=== PATIENT | male | born 1965 | race American Indian/Alaskan Native ===

== ENCOUNTER 2018-08-14 15:39 | Observation (INO) | payer MEDICARE, MEDICAID ==
[2018-08-14 15:39] VITALS: BMI 22.6
[2018-08-14] MEDS ORDERED: MethylPREDNISolone 40 mg Vial ONE (15:47)
[2018-08-14] MEDS ORDERED: DiphenhydrAMINE 50 mg/ml Inj ONE (15:47)
[2018-08-14] MEDS ORDERED: EPINEPHrine 1 mg/ml (1:1000) Inj ONE (15:48)
--- NOTE | 2018-08-14 15:58 | C.PDOC ---
History Of Present Illness 53 y/o male brought in by ambulance for evaluation of new-onset lower lip, tongue, and neck swelling onset 1 hour prior to arrival. Patient states he was recently prescribed Lisinopril, never took it before, and now started having sy mptoms. He is also complaining of generalized pruritus. Denies PMHx of asthma. + Hx of smoking. Patient states that his voice sounds different at present. He reports hx of similar reaction to psychiatric medications. PER OLD RECORD, SEEN @ [facility] 2.22 FOR SAME. PT ADVISED @ THAT TIME TO STOP [facility]IL, [facility] Time Seen by Provider: 08/14/18 15:45 Chief Complaint (Nursing): Allergic Reaction History Per: Patient History/Exam Limitations: no limitations Onset/Duration Of Symptoms: Mins Current Symptoms Are (Timing): Still Present Possible Cause: Medication Associated Symptoms: Swelling Past Medical History Reviewed: Historical Data, Nursing Documentation, Vital Signs Vital Signs: Last Vital Signs Temp 98.2 F 08/14/18 15:44 Pulse 90 08/14/18 15:44 Resp 22 08/14/18 15:44 BP 127/83 08/14/18 15:44 Pulse Ox 99 08/14/18 15:44 - Medical History PMH: Diabetes, HTN, Schizophrenia Denies: Depression - [facility] Procedures INJECT/INFUSE NEC (01/15/14) Family History: States: Unknown Family Hx - Social History Hx Tobacco Use: Yes (former) Hx Alcohol Use: No Hx Substance Use: No - Immunization History Hx Tetanus Toxoid Vaccination: No Hx Influenza Vaccination: No Hx Pneumococcal Vaccination: No Review Of Systems Except As Marked, All Systems Reviewed And Found Negative. Constitutional: Negative for: Fever, Chills Eyes: Negative for: Vision Change ENT: Positive for: Mouth Swelling (to lips and tongue) Cardiovascular: Negative for: Chest Pain Respiratory: Positive for: Shortness of Breath. Negative for: Cough, Wheezing Gastrointestinal: Negative for: Nausea, Vomiting Skin: Positive for: Other (generalized itching). Negative for: Rash Neurological: Negative for: Weakness, Numbness, Dizziness Physical Exam - Physical Exam Appears: Non-toxic, No Acute Distress, Other (Speaking in full sentences) Skin: Warm, Dry, Other (No hives or edema) Head: Atraumatic, Normacephalic Eye(s): bilateral: Normal Inspection, PERRL, EOMI Tongue: Swelling (Distal tongue angioedema) Lips: Swelling (Mild lower lip angioedema) Throat: No Erythema, No Drooling, Other (No stridor) Neck: Other (no gross swelling or asymmetry) Chest: Symmetrical Cardiovascular: Rhythm Regular, No Murmur Respiratory: No Rales, No Rhonchi, No Wheezing, Other (Lungs clear bilaterally, NARD) Extremity: Bilateral: Atraumatic, Normal ROM (x4) Pulses: Left Radial: Normal, Right Radial: Normal Neurological/Psych: Oriented x3, Normal Speech, Normal Cognition, Normal Cranial Nerves Gait: Steady ED Course And Treatment - Laboratory Results Result Diagrams: 08/14/18 16:15 08/14/18 16:15 ECG: Interpreted By Me ECG Rhythm: Sinus Rhythm Rate From EC O2 Sat by Pulse Oximetry: 99 (RA) Pulse Ox Interpretation: Normal - Radiology CXR: Interpreted by Me CXR Interpretation: Yes: No Acute Disease Progress - Re-Evaluation Re-evaluation Note: 08/14/18 16:32 NARD VSS. PS TOOK LISINOPRIL AGAIN "BC I WAS WORRIED ABOUT MY PRESSURE". STATES WAS AWARE OF PREV INSTRUCTION TO AVOID. 08/14/18 17:35 PERSIST MILD ANGIOEDEMA TIP TONGUE D/W DR Thony PIZANO [employer] AGREES FOR ADMISSION. REQUESTS ICU EVAL D/W DR Geni PIZANO, ADVISES CT NECK. ADMIT PT TELE IF NO AIRWAY COMPROMISE ON CT 08/14/18 18:52 NARD APPEARS COMFORTABLE. - Data Reviewed Data Reviewed: Lab, Diagnostic imaging, EKG, Old records - Critical Care Citical Care: Excluding Proc Time Critical Care Time: 90 minutes Medical Decision Making Medical Decision Making: Impression: Angioedema s/p taking new Lisinopril Plan: - EKG - Labs - Chest x-ray - 100 mg IV Solu-Cortef - 20 mg IV Pepcid - 50 mg IV Benadryl - 1 mg SC epinephrine Hcl - reassess Disposition Counseled Patient/Family Regarding: Studies Performed, Diagnosis - Disposition Disposition: HOSPITALIZED Disposition Time: 18:57 Condition: SERIOUS Forms: [facility] (Yakut) - Clinical Impression Clinical Impression: Angioedema - Scribe Statement The provider has reviewed the documentation as recorded by the Db Wu Provider Attestation: All medical record entries made by the Scribe were at my direction and personally dictated by me. I have reviewed the chart and agree that the record accurately reflects my personal performance of the history, physical exam, medical decision making, and the department course for this patient. I have also personally directed, reviewed, and agree with the discharge instructions and disposition. PROCEDURES - EJ/Peripheral Line Consent Obtained: verbal consent Time Out Performed: Yes Skin Cleansed in Sterile Fashion: Yes Size: 20 IV Secured and Dressing Applied: No Patient Tolerated Procedure: Well Additional comments: B/L EJ ATTEMPT WO SUCCESS. SEVERE SCLEROTIC VEINS.
[2018-08-14] MEDS ORDERED: EPINEPHrine 1 mg/ml (1:1000) Inj SC STA (16:04)
[2018-08-14] MEDS ORDERED: DiphenhydrAMINE 50 mg/ml Inj IVP STA (16:07)
[2018-08-14 16:24] LABS: BASO # 0.1 K/uL (0.0-0.2); BASO % 0.5 % (0.0-2.0); EOS # 0.1 K/uL (0.0-0.7); EOS % 0.4 % (0.0-4.0); LYMPH # 1.4 K/uL (1.0-4.3); LYMPH % 5.6 % (20.0-40.0); MEAN CELL VOLUME 73.5 fL (80.0-94.0); MEAN CORPUSCULAR HEMOGLOBIN 22.5 pg (27.0-31.0); MEAN CORPUSCULAR HGB CONC 30.7 g/dL (33.0-37.0); MEAN PLATELET VOLUME 10.2 fL (7.2-11.7); MONO # 1.4 K/uL (0.0-0.8); MONO % 5.7 % (0.0-10.0); NEUT # 21.7 K/uL (1.8-7.0); NEUT % 87.8 % (50.0-75.0); NRBC % 0.1 % (0.0-2.0); PLATELET COUNT 173 K/uL (130-400); RBC 5.31 Mil/uL (4.40-5.90); RED CELL DISTRIBUTION WIDTH 18.9 % (11.5-14.5); WHITE BLOOD COUNT 24.6 K/uL (4.8-10.8)
[2018-08-14 16:38] LABS: BLOOD UREA NITROGEN 21 mg/dL (9-20); GFR NON-AFRICAN AMERICAN > 60
[2018-08-14 16:49] LABS: ANISOCYTOSIS MODERATE; BANDS 1 % (0-2); LYMPHOCYTE 4 % (20-40); MONOCYTE 7 % (0-10); NEUTROPHIL 88 % (50-75); PLATELET ESTIMATE NORMAL (NORMAL); TOTAL CELLS COUNTED 100
[2018-08-14 16:50] LABS: LARGE PLATELETS PRESENT; TOXIC GRANULATION PRESENT
[2018-08-14 16:51] LABS: GIANT PLATELETS PRESENT
[2018-08-14 16:52] LABS: HYPOCHROMIC MODERATE; POLYCHROMIC SLIGHT
[2018-08-14 16:53] LABS: OVALOCYTES SLIGHT; POIKILOCYTOSIS SLIGHT; SCHISTOCYTES SLIGHT
[2018-08-14] MEDS ORDERED: Dexamethasone 4 mg/1 ml IVP ONE ×2 (20:33→21:45)
--- NOTE | 2018-08-14 20:42 | CP.PCM.CON ---
History of Present Illness - History of Present Illness History of Present Illness: 53 y.o. male with a history of schizophrenia who obtaind his medications from [place] presents to [facility] after taking lisinopril. Patient notes he was told not to take ACEI/lisinopril; however he took lisinopril and developed tongue swelling. Patient able to speak crisply without any hoarseness. Denies any chest pain, denies any abdominal pain. PAtient was recently given IV solumedrol. Patient denies any stridor. Deneis any dizziness, denies any difficulty breathing Pmx: psych d/o : schizophrenia allergies: benztropine, heldol, lisinopril, PCN SH: denies smoking, (+)ocassional etoh Review of Systems - Constitutional Constitutional: As Per HPI Past Patient History - Tetanus Immunizations Tetanus Immunization: Unknown - Past Social History Smoking Status: Former Smoker - CARDIAC Hx Hypertension: Yes - ENDOCRINE/METABOLIC Hx Diabetes Mellitus Type 2: Yes - HEMATOLOGICAL/ONCOLOGICAL Hx Blood Disorders: Yes Hx Cancer: Yes (prostate) - PSYCHIATRIC Hx Depression: No Hx Schizophrenia: Yes Hx Substance Use: No - ANESTHESIA Hx Anesthesia: Yes Hx Anesthesia Reactions: No Meds Allergies/Adverse Reactions: Allergies Allergy/AdvReac Type Severity Reaction Status Date / Time benztropine [From Cogentin] Allergy ANAPHYLAXIS Verified 08/13/18 18:48 haloperidol [From Haldol] Allergy ANAPHYLAXIS Verified 08/13/18 18:48 lisinopril Allergy ANGIOEDEMA Verified 08/13/18 18:56 peanut Allergy ANAPHYLAXIS Verified 08/13/18 18:48 Penicillins Allergy ANAPHYLAXIS Verified 08/13/18 18:48 - Medications Medications: Current Medications Diphenhydramine HCl (Benadryl) 25 mg PO Q6 [facility] Diphenhydramine HCl (Benadryl) 25 mg PO ONCE ONE Stop: 08/15/18 20:01 Hydrocortisone Sodium Succinate (Solu-Cortef) 60 mg IV Q8 [facility] Physical Exam - Head Exam Head Exam: ATRAUMATIC, NORMAL INSPECTION, NORMOCEPHALIC - Eye Exam Eye Exam: EOMI Pupil Exam: NORMAL ACCOMODATION - ENT Exam ENT Exam: Mucous Membranes Moist - Neck Exam Neck exam: Positive for: Normal Inspection. Negative for: Lymphadenopathy, Meningismus, Tenderness, Thyromegaly - Respiratory Exam Respiratory Exam: Clear to Auscultation Bilateral, NORMAL BREATHING PATTERN. absent: Prolonged Expiratory Phase, Rales, Rhonchi, Wheezes, Respiratory Distress, Stridor - Cardiovascular Exam Cardiovascular Exam: REGULAR RHYTHM, +S1, +S2 - GI/Abdominal Exam GI & Abdominal Exam: Normal Bowel Sounds, Soft. absent: Distended, Guarding, Hernia, Rebound, Rigid, Tenderness - Extremities Exam Extremities exam: Positive for: normal inspection - Neurological Exam Neurological exam: Alert, CN II-XII Intact, Oriented x3 - Psychiatric Exam Psychiatric exam: Normal Affect - Skin Skin Exam: Normal Color, Warm Results - Vital Signs Recent Vital Signs: Last Vital Signs Temp 98.5 F 08/14/18 20:34 Pulse 20 L 08/14/18 20:34 Resp 98 H 08/14/18 20:34 BP 114/62 08/14/18 20:34 Pulse Ox 99 08/14/18 19:16 - Labs Result Diagrams: 08/14/18 16:15 08/14/18 16:15 Labs: Laboratory Results - last 24 hr 08/14/18 08/14/18 16:15 16:15 WBC 24.6 H RBC 5.31 Hgb 12.0 Hct 39.0 MCV 73.5 L MCH 22.5 L MCHC 30.7 L RDW 18.9 H Plt Count 173 MPV 10.2 Neut % (Auto) 87.8 H Lymph % (Auto) 5.6 L [place] % (Auto) 5.7 Eos % (Auto) 0.4 Baso % (Auto) 0.5 Neut # (Auto) 21.7 H Lymph # (Auto) 1.4 [place] # (Auto) 1.4 H Eos # (Auto) 0.1 Baso # (Auto) 0.1 Neutrophils % (Manual) 88 H Band Neutrophils % 1 Lymphocytes % (Manual) 4 L Monocytes % (Manual) 7 Toxic Granulation Present Platelet Estimate Normal Large Platelets Present Giant Platelets Present Polychromasia Slight Hypochromasia (manual) Moderate Poikilocytosis (manual Slight Anisocytosis (manual) Moderate Ovalocytes Slight Schistocytes Slight Sodium 132 Potassium 4.0 Chloride 98 Carbon Dioxide 27 Anion Gap 11 BUN 21 H Creatinine 0.9 Est GFR ( Amer) > 60 Est GFR (Non-Af Amer) > 60 Random Glucose 168 H Calcium 9.0 Assessment & Plan - Assessment and Plan (Free Text) Assessment: ICU consulted for ?tongue swelling: Patient has no clinical signs of stridor, speaking crisply and articulating well, saturating > 92 on room air -tongue swelling: obtain ENT eval, CT head/neck reveals no posterior pharynx swelling, clinically no redness or pharyngeal swelling -h/o HTN: avoid norvasc -h/o psych: please obtain patient's medication list from [facility] -continue dvt/pud ppx -Patient remains hemodynamically stable -please keep HOB >30 -Please call ICU if patient's clinical status worsens. - Date & Time Date: 08/14/18 Time: 19:00
--- NOTE | 2018-08-15 08:58 | CT ---
Date of service: 08/14/2018 PROCEDURE: CT NECK WITHOUT CONTRAST HISTORY: ANGIOEDEMA COMPARISON: None available. TECHNIQUE: CT of the neck without intravenous contrast. Coronal and sagittal reformats generated. Radiation dose: Total exam DLP = 620.28 mGy-cm. This CT exam was performed using one or more of the following dose reduction techniques: Automated exposure control, adjustment of the mA and/or kV according to patient size, and/or use of iterative reconstruction technique. FINDINGS: NASOPHARYNX: Unremarkable. SUPRAHYOID NECK: Evaluation of the tongue is somewhat limited due to beam hardening artifact from dental hardware. The tongue appears somewhat edematous. There is no mass identified. INFRAHYOID NECK: Unremarkable larynx, hypopharynx, and supraglottic space. Vocal cords intact. MASS: None. GLANDS: Parotid and submandibular glands unremarkable. Normal size thyroid gland, without nodule. LYMPH NODES: Normal. No lymphadenopathy. CERVICAL SPINE: No fracture or focal lesion. OTHER FINDINGS: Chronic ethmoid and bilateral maxillary sinusitis. Small left maxillary retention cysts/polyps. IMPRESSION: Edema of the tongue is suspected though evaluation is limited. The remainder the examination is significant only for chronic paranasal sinusitis. 5:56 p.m. on 08/14/2018
[2018-08-15] MEDS: DiphenhydrAMINE 50 mg/ml Inj IVP SCH ×4 (10:24→23:37)
[2018-08-15] MEDS: Enoxaparin 40 mg Syringe SC SCH (13:00)
--- NOTE | 2018-08-15 15:02 | RAD ---
Date of service: 08/14/2018 PROCEDURE: CHEST RADIOGRAPH, 1 VIEW HISTORY: ANGIOEDEMA COMPARISON: None available. FINDINGS: LUNGS: Clear. PLEURA: No pneumothorax or pleural fluid seen. CARDIOVASCULAR: No aortic atherosclerotic calcification present. Normal. OSSEOUS STRUCTURES: No significant abnormalities. VISUALIZED UPPER ABDOMEN: Normal. OTHER FINDINGS: None. IMPRESSION: No active disease.
--- NOTE | 2018-08-15 15:30 | CP.PCM.HP ---
Past Patient History - Tetanus Immunizations Tetanus Immunization: Unknown - Past Social History Smoking Status: Former Smoker - CARDIAC Hx Hypertension: Yes - ENDOCRINE/METABOLIC Hx Diabetes Mellitus Type 2: Yes - HEMATOLOGICAL/ONCOLOGICAL Hx Blood Disorders: Yes Hx Cancer: Yes (prostate) - PSYCHIATRIC Hx Depression: No Hx Schizophrenia: Yes Hx Substance Use: No - ANESTHESIA Hx Anesthesia: Yes Hx Anesthesia Reactions: No Meds Allergies/Adverse Reactions: Allergies Allergy/AdvReac Type Severity Reaction Status Date / Time benztropine [From Cogentin] Allergy ANAPHYLAXIS Verified 08/13/18 18:48 haloperidol [From Haldol] Allergy ANAPHYLAXIS Verified 08/13/18 18:48 lisinopril Allergy ANGIOEDEMA Verified 08/13/18 18:56 peanut Allergy ANAPHYLAXIS Verified 08/13/18 18:48 Penicillins Allergy ANAPHYLAXIS Verified 08/13/18 18:48 Physical Exam - Constitutional Appears: Well - Head Exam Head Exam: ATRAUMATIC, NORMAL INSPECTION, NORMOCEPHALIC - Eye Exam Eye Exam: EOMI, Normal appearance, PERRL Pupil Exam: NORMAL ACCOMODATION, PERRL - ENT Exam ENT Exam: Mucous Membranes Moist, Normal Exam - Neck Exam Neck exam: Positive for: Normal Inspection - Respiratory Exam Respiratory Exam: Decreased Breath Sounds - Cardiovascular Exam Cardiovascular Exam: REGULAR RHYTHM, +S1, +S2 - GI/Abdominal Exam GI & Abdominal Exam: Diminished Bowel Sounds, Soft - Rectal Exam Rectal Exam: Deferred Results - Vital Signs Recent Vital Signs: Last Vital Signs Temp 98.5 F 08/15/18 10:29 Pulse 76 08/15/18 13:35 Resp 20 08/15/18 10:29 BP 137/90 08/15/18 10:29 Pulse Ox 95 08/14/18 23:45 - Labs Result Diagrams: 08/14/18 16:15 08/14/18 16:15 Labs: Laboratory Results - last 24 hr 08/14/18 08/14/18 16:15 16:15 WBC 24.6 H RBC 5.31 Hgb 12.0 Hct 39.0 MCV 73.5 L MCH 22.5 L MCHC 30.7 L RDW 18.9 H Plt Count 173 MPV 10.2 Neut % (Auto) 87.8 H Lymph % (Auto) 5.6 L [place] % (Auto) 5.7 Eos % (Auto) 0.4 Baso % (Auto) 0.5 Neut # (Auto) 21.7 H Lymph # (Auto) 1.4 [place] # (Auto) 1.4 H Eos # (Auto) 0.1 Baso # (Auto) 0.1 Neutrophils % (Manual) 88 H Band Neutrophils % 1 Lymphocytes % (Manual) 4 L Monocytes % (Manual) 7 Toxic Granulation Present Platelet Estimate Normal Large Platelets Present Giant Platelets Present Polychromasia Slight Hypochromasia (manual) Moderate Poikilocytosis (manual Slight Anisocytosis (manual) Moderate Ovalocytes Slight Schistocytes Slight Sodium 132 Potassium 4.0 Chloride 98 Carbon Dioxide 27 Anion Gap 11 BUN 21 H Creatinine 0.9 Est GFR ( Amer) > 60 Est GFR (Non-Af Amer) > 60 Random Glucose 168 H Calcium 9.0
[2018-08-16 00:19] VITALS: RESP 20
[2018-08-16] MEDS: DiphenhydrAMINE 50 mg/ml Inj IVP SCH ×3 (05:37→17:27)
[2018-08-16] MEDS: Enoxaparin 40 mg Syringe SC SCH (09:56)
[2018-08-16] MEDS ORDERED: TRIHEXYPHENIDYL PO SCH (16:15)
--- NOTE | 2018-08-16 18:50 | CP.PCM.PN ---
Subjective - Date & Time of Evaluation Date of Evaluation: 08/16/18 Time of Evaluation: 11:30 - Subjective Subjective: clinically same Objective - Vital Signs/Intake and Output Vital Signs (last 24 hours): Temp Pulse Resp BP Pulse Ox 98.7 F 73 20 120/82 97 08/16/18 15:00 08/16/18 16:00 08/16/18 15:00 08/16/18 15:00 08/16/18 16:00 Intake and Output: 08/16/18 08/16/18 06:59 18:59 Output Total 500 Balance -500 - Medications Medications: Current Medications Amlodipine Besylate (Norvasc) 5 mg PO DAILY [facility] Last Admin: 08/16/18 17:15 Dose: Not Given Chlorpromazine (Thorazine) 50 mg PO BID [facility] Last Admin: 08/16/18 17:25 Dose: 50 mg Diphenhydramine HCl (Benadryl) 25 mg IVP Q6 [facility] Last Admin: 08/16/18 17:27 Dose: 25 mg Enoxaparin Sodium (Lovenox) 40 mg SC DAILY [facility] Last Admin: 08/16/18 09:56 Dose: 40 mg Hydrocortisone Sodium Succinate (Solu-Cortef) 60 mg IV Q8 [facility] Last Admin: 08/16/18 14:47 Dose: 60 mg - Labs Labs: 08/14/18 16:15 08/14/18 16:15
[2018-08-17] MEDS: DiphenhydrAMINE 50 mg/ml Inj IVP SCH ×3 (00:21→12:57)
--- NOTE | 2018-08-17 09:35 | PCM.PSYCH ---
Initial Psychiatric Evaluation - Initial Psychiatric Evaluation Type of Admission: Voluntary Legal Status: Capacity History of Present Illness and Precipitating Events: 53 y.o. male with a history of schizophrenia who obtaind his medications from [place] presents to [facility] after taking lisinopril. Patient notes he was told not to take ACEI/lisinopril; however he took lisinopril and developed tongue swelling. Patient able to speak crisply without any hoarseness. Current Medications: Active Medications Generic Name Dose Route Start Last Admin Trade Name Abdoul PRN Reason Stop Dose Admin Amlodipine Besylate 5 mg 08/16/18 16:15 08/16/18 17:15 Norvasc PO Not Given DAILY [facility] Chlorpromazine 50 mg 08/16/18 18:00 08/16/18 17:25 Thorazine PO 50 mg BID [facility] Administration Diphenhydramine HCl 25 mg 08/15/18 10:30 08/17/18 06:08 Benadryl IVP 25 mg Q6 [facility] Administration Enoxaparin Sodium 40 mg 08/15/18 12:00 08/16/18 09:56 Lovenox SC 40 mg DAILY [facility] Administration Hydrocortisone Sodium Succinate 60 mg 08/14/18 22:00 08/17/18 06:09 Solu-Cortef IV 60 mg Q8 [facility] Administration Past Psychiatric History - Past Psychiatric History Pertinent Medical Hx (Current Medical&Sleep Prob, Allergies): Allergies Allergy/AdvReac Type Severity Reaction Status Date / Time benztropine [From Cogentin] Allergy ANAPHYLAXIS Verified 08/13/18 18:48 haloperidol [From Haldol] Allergy ANAPHYLAXIS Verified 08/13/18 18:48 lisinopril Allergy ANGIOEDEMA Verified 08/13/18 18:56 peanut Allergy ANAPHYLAXIS Verified 08/13/18 18:48 Penicillins Allergy ANAPHYLAXIS Verified 08/13/18 18:48 Trihexyphenidyl Hydrochlorid [Artane] 2.5 mg PO DAILY 01/12/14 chlorproMAZINE [chlorPROMAZINE HCL] 50 mg PO BID 01/12/14 amLODIPine [Norvasc] 5 mg PO DAILY #30 tab 08/13/18
[2018-08-17] MEDS: Enoxaparin 40 mg Syringe SC SCH (09:39)
--- NOTE | 2018-08-17 14:45 | CP.PCM.PN ---
Subjective - Date & Time of Evaluation Date of Evaluation: 08/17/18 Time of Evaluation: 12:45 - Subjective Subjective: clinically same Objective - Vital Signs/Intake and Output Vital Signs (last 24 hours): Temp Pulse Resp BP Pulse Ox 98.2 F 60 20 149/89 97 08/17/18 07:00 08/17/18 08:41 08/17/18 07:00 08/17/18 07:00 08/17/18 08:00 Intake and Output: 08/17/18 08/17/18 06:59 18:59 Intake Total 840 Output Total 700 Balance -700 840 - Medications Medications: Current Medications Amlodipine Besylate (Norvasc) 5 mg PO DAILY [facility] Last Admin: 08/17/18 09:35 Dose: 5 mg Chlorpromazine (Thorazine) 50 mg PO BID [facility] Last Admin: 08/17/18 09:35 Dose: 50 mg Diphenhydramine HCl (Benadryl) 25 mg PO Q6 PRN PRN Reason: Allergy symptoms Last Admin: 08/17/18 12:57 Dose: 25 mg Enoxaparin Sodium (Lovenox) 40 mg SC DAILY [facility] Last Admin: 08/17/18 09:39 Dose: 40 mg Prednisone (Prednisone Tab) 40 mg PO DAILY [facility] - Labs Labs: 08/14/18 16:15 08/14/18 16:15
--- NOTE | 2018-08-17 19:51 | CARD ---
APPROVED REPORT Date of service: 08/14/2018 EKG Measurement Heart [id number] <Conclusion> Normal sinus rhythm Nonspecific T wave abnormality Abnormal ECG
--- NOTE | 2018-08-17 20:21 | CON ---
DATE: 08/17/2018 REASON FOR CONSULTATION: Swollen tongue. HISTORY OF PRESENT ILLNESS: This is a 53-year-old male who was admitted to the hospital three days ago with swelling of the tongue, this was a sudden onset, he had a one day history, constant, [id number] in intensity. No shortness of breath, garbled speech at that time. At this point, the patient has no swelling, no shortness of breath, no garbled speech, and no pain. PAST MEDICAL HISTORY: As noted in the chart by me. MEDICATIONS: As noted in the chart by me. ALLERGIES: NOTED IN THE CHART BY ME. PHYSICAL EXAMINATION: HEAD: Atraumatic and normocephalic. FACE: Good facial movements bilaterally. CONSTITUTIONAL: Well fed, well nourished. COMMUNICATION: Communicates well and appropriately. EXTERNAL NOSE AND EARS: No masses, no lesions, no erythema, no edema. INTERNAL NOSE: Deviated septum. No masses, no lesions, no erythema, no edema. ORAL CAVITY AND OROPHARYNX: No masses, no lesions, no erythema, no edema. NECK: Supple. THYROID: No thyromegaly, no goiter. LYMPH NODES: No lymphadenopathy of the neck. LIPS AND GUMS: No masses, no lesions, no erythema, no edema. ASSESSMENT: 1. Tongue edema, resolved. 2. Deviated septum. PLAN: Okay to discharge home from an ENT point. Cristhian Krishna MD
[2018-08-18] MEDS: Enoxaparin 40 mg Syringe SC SCH (09:44)
[2018-08-18 12:05] LABS: BLOOD UREA NITROGEN 15 mg/dL (9-20); CALCIUM 8.1 mg/dl (8.6-10.4); GFR NON-AFRICAN AMERICAN > 60
[2018-08-18 12:09] LABS: BASO # 0.1 K/uL (0.0-0.2); BASO % 0.9 % (0.0-2.0); EOS # 0.1 K/uL (0.0-0.7); EOS % 1.2 % (0.0-4.0); HEMOGLOBIN 12.1 g/dL (12.0-18.0); LYMPH # 1.5 K/uL (1.0-4.3); LYMPH % 14.3 % (20.0-40.0); MEAN CELL VOLUME 73.3 fL (80.0-94.0); MEAN CORPUSCULAR HEMOGLOBIN 22.7 pg (27.0-31.0); MEAN PLATELET VOLUME 10.6 fL (7.2-11.7); MONO # 0.7 K/uL (0.0-0.8); MONO % 7.1 % (0.0-10.0); NEUT % 76.5 % (50.0-75.0); NRBC % 0.3 % (0.0-2.0); RBC 5.33 Mil/uL (4.40-5.90); RED CELL DISTRIBUTION WIDTH 18.2 % (11.5-14.5)
[2018-08-18 12:11] LABS: WHITE BLOOD COUNT 10.5 K/uL (4.8-10.8)
[2018-08-18] MEDS ORDERED: Potassium Chloride 20 mEq ER Tab PO ONE (14:45)
--- NOTE | 2018-08-18 19:38 | CP.PCM.PN ---
Subjective - Date & Time of Evaluation Date of Evaluation: 08/18/18 Time of Evaluation: 11:15 - Subjective Subjective: clinically same Objective - Vital Signs/Intake and Output Vital Signs (last 24 hours): Temp Pulse Resp BP Pulse Ox 98.1 F 106 H 20 102/65 97 08/18/18 15:00 08/18/18 15:00 08/18/18 15:00 08/18/18 15:00 08/18/18 16:59 Intake and Output: 08/18/18 08/19/18 18:59 06:59 Intake Total 900 Balance 900 - Medications Medications: Current Medications Amlodipine Besylate (Norvasc) 5 mg PO DAILY [facility] Last Admin: 08/18/18 09:44 Dose: Not Given Chlorpromazine (Thorazine) 50 mg PO BID [facility] Last Admin: 08/18/18 17:48 Dose: 50 mg Diphenhydramine HCl (Benadryl) 25 mg PO Q6 PRN PRN Reason: Allergy symptoms Last Admin: 08/17/18 12:57 Dose: 25 mg Enoxaparin Sodium (Lovenox) 40 mg SC DAILY [facility] Last Admin: 08/18/18 09:44 Dose: 40 mg Prednisone (Prednisone Tab) 40 mg PO DAILY [facility] Last Admin: 08/18/18 09:43 Dose: 40 mg - Labs Labs: 08/18/18 11:24 08/18/18 11:24
[2018-08-19 04:53] VITALS: BP 110/67; PULSE 103; TEMP 98.4; O2SAT 95
[2018-08-19] MEDS: Enoxaparin 40 mg Syringe SC SCH (09:44)
== END 2018-08-19 13:53 | disposition home or self-care (01) ==
LOC: C.ER 15:39 → C.9E 18:57 → C.6T 19:29
PROVIDERS: ADMIT Internal Medicine Nephrology; ATTEND Internal Medicine Nephrology
DX: T78.3XXA Angioneurotic edema, initial encounter (principal); L29.9 Pruritus, unspecified; Z87.891 Personal history of nicotine dependence; J34.2 Deviated nasal septum; I10 Essential (primary) hypertension; E11.9 Type 2 diabetes mellitus without complications; T88.7XXA Unspecified adverse effect of drug or medicament, initial encounter; T46.4X5A Adverse effect of angiotensin-converting-enzyme inhibitors, initial encounter
CPT/HCPCS: 36415; 70490; 71045; 80048; 82948; 85025; 92610; 93005; 96372; 96374; 97116; 97162; 99285; G0378; G8978; G8979; G8996; G8997; J0171; J1100; J1200; J1650; J1720; Q0161

== ENCOUNTER 2018-08-19 16:40 | Observation (INO) | payer MEDICARE, MEDICAID ==
[2018-08-19 16:44] VITALS: BMI 27.1
[2018-08-19] MEDS ORDERED: MethylPREDNISolone 40 mg Vial IM STA (17:17)
[2018-08-19] MEDS ORDERED: DiphenhydrAMINE 50 mg/ml Inj IM STA (17:17)
--- NOTE | 2018-08-19 17:25 | C.PDOC ---
History Of Present Illness 53 year old male presents to ED with complaint of swelling to the tongue and right side of the neck that started 20 minutes after taking Norvasc. Patient has a psychiatric history. pt was discharged this morning from [facility] for angioedema. Patient was also in [facility] for angioedema on 08/13/18. Patient had been taking lisinopril and was switched to norvasc. Patient states he took the norvasc 20 minutes prior and that it is was caused it reaction. Time Seen by Provider: 08/19/18 17:12 Chief Complaint (Nursing): Allergic Reaction History Per: Patient History/Exam Limitations: no limitations Onset/Duration Of Symptoms: Hrs Current Symptoms Are (Timing): Still Present Suicide/Self Injury Attempted (Context): None Past Medical History Reviewed: Historical Data, Nursing Documentation, Vital Signs Vital Signs: Last Vital Signs Temp 98.0 F 08/19/18 16:43 Pulse 95 H 08/19/18 16:43 Resp 20 08/19/18 16:43 BP 116/81 08/19/18 16:43 Pulse Ox 100 08/19/18 16:43 - Medical History PMH: Diabetes, HTN, Schizophrenia Denies: Depression Surgical History: No Surg Hx - [facility] INJECT/INFUSE NEC (01/15/14) Family History: States: Unknown Family Hx - Social History Hx Tobacco Use: Yes (former) Hx Alcohol Use: No Hx Substance Use: No - Immunization History Hx Tetanus Toxoid Vaccination: No Hx Influenza Vaccination: No Hx Pneumococcal Vaccination: No Review Of Systems Constitutional: Negative for: Fever, Chills, Weakness ENT: Positive for: Mouth Swelling, Other (swelling to tongue and right side of neck) Respiratory: Negative for: Cough, Shortness of Breath, Wheezing Gastrointestinal: Negative for: Nausea, Vomiting Skin: Negative for: Rash Neurological: Negative for: Weakness, Numbness, Dizziness Physical Exam - Physical Exam Appears: Non-toxic, No Acute Distress Skin: Normal Color, Warm, Dry Head: Atraumatic, Normacephalic Eye(s): bilateral: Normal Inspection Nose: Normal Oral Mucosa: Moist Tongue: Other (mild swelling. pt with tongue out of lips) Lips: Normal Appearing, No Swelling Gingiva: Normal Appearing Throat: Normal, No Erythema, No Exudate Neck: Normal ROM, Supple Chest: Symmetrical, No Deformity Cardiovascular: Rhythm Regular, No Murmur Respiratory: No Decreased Breath Sounds, No Accessory Muscle Use, No Rales, No Rhonchi, No Stridor, No Wheezing Gastrointestinal/Abdominal: Soft, No Tenderness Extremity: Normal ROM, No Tenderness, Capillary Refill (<2 seconds) Extremity: Bilateral: Atraumatic, Normal Color And Temperature Pulses: Left Radial: Normal, Right Radial: Normal Neurological/Psych: Oriented x3, Normal Speech, Normal Cognition ED Course And Treatment O2 Sat by Pulse Oximetry: 100 (RA) Medical Decision Making Medical Decision Making: Impression: 53 year old with complaint of swelling to tongue and right side of neck Plan: Patient given Benadryl PO, Pepcid PO, and solu-medrol IM. pt discharged today with angoiedema from geovanna inhibitor lsinoprilpt hadmittd for several days; lisinporil stopped, and started on norvasc. possible allergic reaction, will treat with benadryl and steroids. Disposition Discussed With Dr.: Jonathan Piña Doctor Will See Patient In The: Hospital - Disposition Disposition: HOSPITALIZED Disposition Time: 17:40 Condition: GOOD Forms: [facility] (Nauruan) - Clinical Impression Clinical Impression: Angioedema - PA / [employer] / Resident Statement MD/DO has reviewed & agrees with the documentation as recorded. (Yesenia Schaefer) - Scribe Statement The provider has reviewed the documentation as recorded by the Scribe (Yesenia Schaefer) All medical record entries made by the Scribe were at my direction and personally dictated by me. I have reviewed the chart and agree that the record accurately reflects my personal performance of the history, physical exam, medical decision making, and the department course for this patient. I have also personally directed, reviewed, and agree with the discharge instructions and disposition.
[2018-08-19] MEDS ORDERED: DiphenhydrAMINE 50 mg/ml Inj ONE (17:29)
[2018-08-19] MEDS ORDERED: MethylPREDNISolone 40 mg Vial ONE (17:29)
[2018-08-19 18:29] LABS: EOS % 0.1 % (0.0-4.0); HEMOGLOBIN 11.7 g/dL (12.0-18.0); LYMPH # 0.4 K/uL (1.0-4.3); LYMPH % 2.6 % (20.0-40.0); MEAN CELL VOLUME 74.6 fL (80.0-94.0); MEAN CORPUSCULAR HEMOGLOBIN 22.5 pg (27.0-31.0); MEAN CORPUSCULAR HGB CONC 30.2 g/dL (33.0-37.0); MEAN PLATELET VOLUME 10.1 fL (7.2-11.7); MONO # 0.3 K/uL (0.0-0.8); MONO % 2.2 % (0.0-10.0); NEUT % 95.1 % (50.0-75.0); PLATELET COUNT 144 K/uL (130-400); RBC 5.19 Mil/uL (4.40-5.90); WHITE BLOOD COUNT 14.7 K/uL (4.8-10.8)
[2018-08-19 18:49] VITALS: RESP 20
[2018-08-19 18:49] LABS: ALB/GLOB RATIO 1.2 (1.0-2.1); ALBUMIN 3.4 g/dL (3.5-5.0); ALT/SGPT 100 U/L (21-72); AST/SGOT 157 U/L (17-59); BLOOD UREA NITROGEN 18 mg/dL (9-20); CALCIUM 8.3 mg/dl (8.6-10.4); GFR NON-AFRICAN AMERICAN > 60
[2018-08-19 19:05] LABS: BANDS 2 % (0-2); LYMPHOCYTE 2 % (20-40); MONOCYTE 2 % (0-10); NEUTROPHIL 94 % (50-75); PLATELET ESTIMATE NORMAL (NORMAL); TOTAL CELLS COUNTED 100
[2018-08-19 19:06] LABS: ANISOCYTOSIS SLIGHT; HYPOCHROMIC SLIGHT; POIKILOCYTOSIS SLIGHT
[2018-08-19 19:07] LABS: MICROCYTOSIS SLIGHT; TARGET CELLS SLIGHT
[2018-08-19 19:08] LABS: OVALOCYTES SLIGHT
[2018-08-19 19:09] LABS: TEARDROP CELLS SLIGHT
[2018-08-20] MEDS: MethylPREDNISolone 40 mg Vial IVP SCH ×2 (01:00→05:33)
[2018-08-20] MEDS: DiphenhydrAMINE 50 mg/ml Inj IVP SCH ×2 (01:03→07:52)
[2018-08-20 07:42] VITALS: BP 131/78; TEMP 98; O2SAT 99
[2018-08-20 08:21] VITALS: PULSE 78
[2018-08-20] MEDS ORDERED: Pantoprazole 40 mg EC Tab PO SCH (10:00)
[2018-08-20] MEDS ORDERED: Enoxaparin 40 mg Syringe SC SCH (10:00)
--- NOTE | 2018-08-20 11:32 | CP.PCM.PN ---
Subjective - Date & Time of Evaluation Date of Evaluation: 08/20/18 Time of Evaluation: 08:00 - Subjective Subjective: House doctor note House Doctor paged for patient requesting to leave against medical advice. Patient states he has to go to court today. The patient is competent and understands the risk of leaving including permanent disability and or and has had an opportunity to ask questions about his condition, patient accepts all risk and liability. paper work filed, attending notified by RN. The patient had been informed that he may return for care at any time, and patient will follow up with PMD urgently. Objective - Vital Signs/Intake and Output Vital Signs (last 24 hours): Temp Pulse Resp BP Pulse Ox 98.0 F 78 20 131/78 99 08/20/18 07:00 08/20/18 07:40 08/20/18 07:00 08/20/18 07:00 08/20/18 07:00 - Labs Labs: 08/19/18 18:14 08/19/18 18:14
== END 2018-08-20 09:40 | disposition left against medical advice (07) ==
LOC: C.ER 16:40 → C.9E 17:40 → C.5S 18:19
PROVIDERS: ADMIT Internal Medicine Nephrology; ATTEND Internal Medicine Nephrology
DX: T78.3XXA Angioneurotic edema, initial encounter (principal); E11.9 Type 2 diabetes mellitus without complications; F20.9 Schizophrenia, unspecified; I10 Essential (primary) hypertension; Z87.891 Personal history of nicotine dependence
CPT/HCPCS: 36415; 80053; 85025; 96372; 96374; 96375; 96376; 99285; G0378; J1200; J2920